=== PATIENT | female | born 1985 | race American Indian/Alaskan Native ===

== ENCOUNTER 2017-02-21 18:25 | Inpatient (IN) | payer MEDICAID, OTHER ==
[2017-02-21] MEDS ORDERED: Sodium Chloride 0.9% 10 ML Syringe FLUSH PRN (20:50)
[2017-02-21] MEDS ORDERED: Lidocaine 1% 30 ML SDV INJECT PRN (20:50)
[2017-02-21] MEDS ORDERED: Carboprost Tromethamine 250 MCG/1 ML Amp IM PRN (20:50)
[2017-02-21] MEDS ORDERED: Ondansetron 4 MG/2 ML SDV IV PRN (20:50)
[2017-02-21] MEDS ORDERED: Nalbuphine 20 MG/1 ML Amp IVPUSH PRN (20:50)
[2017-02-21] MEDS ORDERED: Lactated Ringers 500 ML IV ONE (20:50)
[2017-02-21] MEDS ORDERED: Methylergonovine 0.2 MG/1 ML Amp IM PRN (20:50)
[2017-02-21] MEDS ORDERED: fentaNYL 100 MCG/2 ML SDV IVPUSH PRN (20:50)
[2017-02-21] MEDS ORDERED: Misoprostol 400 MCG (4 X 100 MCG TAB) RECTAL PRN (20:50)
[2017-02-21] MEDS ORDERED: Oxytocin/Normal Saline 30 UNIT/500 ML BAG IV SCH (21:00)
[2017-02-21] MEDS: Misoprostol 25 MCG (1/4 of 100 MCG) Tab VAG PRN (21:20)
[2017-02-21] MEDS: Acetaminophen 325 MG Tab PO PRN (22:54)
[2017-02-21] MEDS ORDERED: Zolpidem 5 MG Tab PO PRN (22:55)
--- NOTE | 2017-02-21 23:04 | HP ---
CHIEF COMPLAINT: Leaking fluid for 23 hours. HISTORY OF PRESENT ILLNESS: A 31-year-old, 8, para 3-2-2-4, currently at 37 and 2/7 weeks of her based on 16-week 4-day ultrasound, which was different by 1 week 6 days from her last menstrual period. Reports to the hospital this evening reporting suspected spontaneous rupture of membranes yesterday approximately 9:00 p.m. and tells us that she has heavily saturated approximately 24 pads throughout the night. She had trouble getting a ride to the hospital until today. Denies any fever or chills. movement has been good. No foul-smelling drainage or discharge. No abdominal tenderness or pain. No chest pain. She has had some shortness of breath just because her abdomen is large. No headaches or blurry vision. No nausea or vomiting. Reports some trace edema, but no other potential symptoms of preeclampsia. Reports that she has had contractions off and on for the past 3 days, but nothing consistent with labor. HISTORY: Last menstrual period 05/23/2016 would make her due date February 27; however, 16-week ultrasound places her due at 03/12/2017. #7 spontaneous on 05/25/2016 approximately 6 weeks believed to be due to urinary tract infection that was not treated and resolved spontaneously. #6 delivered at term on 10/02/2011, 39 weeks 1 day gestation male spontaneous vaginal delivery, his name is Brittany. weight 3912 g. She had an intrathecal for pain management. Stage I was 24 hours. Stage II 1 hour. scores of 9 and 9. Delivered by Dr. Rojas here at [facility]. No gestational diabetes in that , and the course was uneventful. #5 was a spontaneous miscarriage on 09/10/2009 approximately 12 weeks' gestation, resolved spontaneously. #4 on 04/02/2009, at 36 weeks' gestation, vaginal spontaneous delivery, male infant. His name Tiny. weight 4564 g. Stage I was 12 hours. Stage II 8 minutes. Gestational diabetes was uncontrolled and not diagnosed until 1 week prior to delivery. She had spontaneous rupture of membranes early and then was dilated at 9 cm upon admission. Delivered here in [place] with Dr. Mojica. #3 at term delivered on 06/14/2008, 37 weeks 3 days gestation, male . Vaginally, his name is Moises, weight 3515 g. She had an intrathecal for anesthesia 13 hours of stage I, 30 minutes of stage II, delivering in [place] with Dr. Mojica. #2 delivered at term on 08/07/2006 at 38 weeks 5 days, male infant, delivered vaginally, his name is Alen, weight 4054 g under intrathecal anesthesia here in [place] with Dr. Lai. #1 delivery on 02/14/2005 at 27 weeks gestation female infant , spontaneous vaginal delivery. This was a demise. No D and C was necessary , and the patient denies getting any followup test results and had delivered at home in the bathroom. TESTING: She is blood type O positive. Antibody screen negative. Rubella immune. Syphilis negative. Hepatitis B negative. HIV negative. Gonorrhea and chlamydia negative. TSH normal at 0.90. Hepatitis C negative. Wet prep was positive for clue cells. Pap smear, history of LSIL at [place]. Glucose tolerance test of 161. The patient did drink a Mountain Dew about 15 minutes prior to drinking the glucose load and has not completed a 3- hour glucose test. Group B strep test was done at [facility] and negative. Needs Tdap and Flu vaccines. PAST MEDICAL HISTORY: 1. Abnormal Pap smear of LSIL. 2. History of alcohol abuse. Denies any use during . 3. History of chickenpox as a child. 4. History of gestational diabetes. 5. Irregular periods with menarche at age 15. 6. History of large for gestational age infant. 7. History of UTIs. 8. History of tattoos and ear piercings. No transfusions or IV drug use. PAST SURGICAL HISTORY: Negative. FAMILY HISTORY: Mother and father are both alive and well. Twins run in the father's side of the family, and he has fathered twins. She has several brothers and 1 sister all who are reportedly alive and well. A maternal cousin and niece with diabetes. All 4 grandparents are reportedly alive and well. There was also a maternal aunt with diabetes. No family history of defects, cystic fibrosis, seizures, bleeding, or clotting disorders. Anesthesia problems or Down syndrome. SOCIAL HISTORY: The patient is single. Her boyfriend, Niels, still lives in [place]. She is living in [place] with her 4 children and moved back to [place] after diagnosed. Plans on getting a job at the [employer] at the [employer] after the baby is born. This will be her first child with Niels. He is reportedly half [place] half , and he should be moving to the area when he finishes school. She denies any use of alcohol or drugs during the course of the . MEDICATION EXPOSURES: Currently taking a vitamin. Otherwise, she has had some Tylenol and nitrofurantoin and probably metronidazole for the bacterial vaginosis. ALLERGIES: Codeine reported to cause anaphylaxis. REVIEW OF SYSTEMS: Pertinent positives and negatives as listed under the history of present illness. PHYSICAL EXAMINATION: General: Pleasant, well-appearing female, who appears her stated age. Vital Signs: Temperature is 98.3, blood pressure 111/76, and pulse of 76. Head, Eyes, Ears, Nose, and Throat: All within normal limits to gross inspection. Neck: Supple without adenopathy. Heart: Regular without obvious murmur. Lungs: Clear to auscultation bilaterally. Abdomen: Gravid, soft, and nontender. heart tones tracing at 135 beats per minute at baseline. Moderate rpaj-ev-cijq variability. Accelerations are noted. [place] not really tracing contractions very well. The patient is reporting feeling contractions about every 5 to 8 minutes. Cervical exam 2 cm dilated, 50% effaced, -3 station. vertex appreciated. Extremities: No obvious edema, erythema, or tenderness noted. Skin: warm, dry. Point of care glucose test was 82. CBC is currently pending. Ultrasound confirms vertex, and amniotic fluid volume of 7.8, and largest pocket just under 4 cm. Nitrazine negative. Pooling positive. Ferning negative. AmniSure positive. Urinalysis essentially negative. ASSESSMENT: 1. A 37 and 2/7 weeks' intrauterine by 16-week ultrasound. 2. 8, para 3-2-2-4. 3. Prolonged premature rupture of membranes. 4. Blood type O positive. Rubella immune. Group B strep negative. 5. Chronic low back pain. 6. History of spontaneous x2. 7. History of demise x1. 8. Urinary tract infection first trimester. 9. History of gestational diabetes, prior with an abnormal glucose tolerance test this and did not complete a 3-hour test; however, random glucose is good at this time. 10.History of macrosomic infants. 11.Grand multiparity. 12.Low-grade squamous intraepithelial lesion, on Pap smear. PLAN: Discussed with the patient risk of prolonged rupture of membranes and induction is indicated since she is beyond 37 weeks' gestation; however, induction is also anticipated to be longer than natural onset of labor with increased risk of requiring operative delivery whether that be by vacuum assistance or in the operating room, also increased discomfort and prolonged labor process would be anticipated. There is increased risk to the baby as he is only 37 weeks' gestation, and she quite possibly has undiagnosed gestational diabetes, which could further limit lung maturity. At this time, she will be admitted to Labor and Delivery room, and Cytotec will be placed, and then pending on the results with that, we may need to be placing additional Cytotec or transition over to Pitocin. Given successful vaginal delivery history, we will be anticipating a vaginal delivery. The patient's questions have been answered, and Cytotec consent form signed. [facility] /[id number] MTDAlize
[2017-02-22] MEDS: Misoprostol 25 MCG (1/4 of 100 MCG) Tab VAG PRN (01:38)
[2017-02-22] MEDS: Lactated Ringers 1,000 ML IV SCH ×3 (05:34→17:25)
[2017-02-22] MEDS: Oxytocin/Normal Saline 30 UNIT/500 ML BAG IV SCH ×2 (05:34→20:30)
[2017-02-22] MEDS ORDERED: Diphtheria,Pertussis(Acell),Tetanus Vaccine 0.5 ML SDV IM ONE (07:06)
[2017-02-22] MEDS ORDERED: FLU VAC QS 17-18(4YR UP)CEL/PF 60 MCG/0.5 ML Syringe IM ONE (07:07)
[2017-02-22] MEDS ORDERED: Measles, Mumps & Rubella Vaccine 0.5 ML SDV SUBCUT ONE (07:07)
[2017-02-22] MEDS ORDERED: Nalbuphine 20 MG/1 ML Amp IM ONE ×2 (08:29→11:00)
--- NOTE | 2017-02-22 14:16 | PCM.HP ---
H&P History of Present Illness - General Admit Problem/Dx: Admission Diagnosis/Problem Admission Diagnosis/Problem PROM with onset of labor more than 24 hours following rupture Source of Information: Patient History Limitations: Reports: No Limitations Labor Pains Pain Score (Numeric/FACES): 4 - Related Data Allergies/Adverse Reactions: Allergies Allergy/AdvReac Type Severity Reaction Status Date / Time codeine Allergy Itching Verified 02/21/17 22:10 Home Medications: Home Meds Vit W-Ca,Fe,FA(<1 mg) [ Vitamins] 1 each PO DAILY 02/21/17 [ History] Past Medical History - Past Health History Medical/Surgical History: Denies Medical/Surgical History HEENT History: Reports: Impaired Vision Cardiovascular History: Reports: None Respiratory History: Reports: None Gastrointestinal History: Reports: GERD Other Gastrointestinal History: during Genitourinary History: Reports: Pyelonephritis, UTI, Recurrent EDUCATIONAL CONSULTANT History: Reports: , Spontaneous Other OB/BYN History: Gestational Diabetic Musculoskeletal History: Reports: Back Pain, Chronic Neurological History: Reports: None Psychiatric History: Reports: Addiction Other Endocrine/Metabolic History: Gestational Diabetic Hematologic History: Reports: None Oncologic (Cancer) History: Reports: None - Infectious Disease History Infectious Disease History: Reports: Chicken Pox - Past Surgical History HEENT Surgical History: Reports: Other (See Below) Other HEENT Surgeries/Procedures: lower wisdom teeth pulled Female Surgical History: Reports: D&C Social & Family History - Family History Family Medical History: Noncontributory - Tobacco Use Smoking Status *Q: Former Smoker Years of Tobacco use: 10 Packs/Tins Daily: 0.2 Used Tobacco, but Quit: Yes Month Tobacco Last Used: 09/2016 Second Hand Smoke Exposure: Yes - Caffeine Use Caffeine Use: Reports: Soda - Alcohol Use Days Per Week of Alcohol Use: 0 - Recreational Drug Use Recreational Drug Use: No Drug Use in Last 12 Months: Yes Recreational Drug Type: Reports: Marijuana/Hashish H&P Review of Systems - Review of Systems: Review Of Systems: See Below General: Reports: No Symptoms HEENT: Reports: No Symptoms Pulmonary: Denies: Shortness of Breath Exam - Exam Exam: See Below - Vital Signs Vital Signs: Last Vital Signs Temp 97.3 F 02/22/17 08:45 Pulse 61 02/22/17 09:45 Resp 16 02/22/17 09:45 BP 119/61 02/22/17 09:45 Pulse Ox 99 02/21/17 18:30 Weight: 195 lb - Patient Data Lab Results Last 24 hrs: Laboratory Results - last 24 hr 02/21/17 02/21/17 02/21/17 Range/Units 18:35 20:13 20:30 WBC (5.0-10.0) 10^3/uL RBC (4.2-5.4) 10^6/uL Hgb (12.0-16.0) g/dL Hct (37.0-47.0) % MCV (80-100) fL MCH (27.0-34.0) pg MCHC (33.0-35.0) g/dL Plt Count (150-450) 10^3/uL POC Glucose 82 (70-105) mg/dl Urine Color Yellow (YELLOW) Urine Appearance Slightly cloudy (CLEAR) Urine pH 8.5 (5.0-9.0) Ur Specific [place] 1.015 (1.005-1.030) Urine Protein Negative (NEGATIVE) Urine Glucose (UA) Negative (NEGATIVE) Urine Ketones Negative (NEGATIVE) Urine Occult Blood Negative (NEGATIVE) Urine Nitrite Negative (NEGATIVE) Urine Bilirubin Negative (NEGATIVE) Urine Urobilinogen 0.2 (0.2-1.0) mg/dL Ur Leukocyte Esterase Negative (NEGATIVE) Urine RBC Not seen /HPF Urine WBC 0-5 (0-5/HPF) /HPF Ur Epithelial Cells Moderate H /HPF Urine Bacteria Few (0-FEW/HPF) /HPF Urine Other See note Amniotic Ferning Test Not seen Membrane Rupture Positive (NEG) 02/21/17 Range/Units 21:15 WBC 6.3 (5.0-10.0) 10^3/uL RBC 3.30 L (4.2-5.4) 10^6/uL Hgb 9.4 L D (12.0-16.0) g/dL Hct 28.8 L (37.0-47.0) % MCV 87.3 D (80-100) fL MCH 28.5 (27.0-34.0) pg MCHC 32.6 L (33.0-35.0) g/dL Plt Count 162 D (150-450) 10^3/uL POC Glucose (70-105) mg/dl Urine Color (YELLOW) Urine Appearance (CLEAR) Urine pH (5.0-9.0) Ur Specific [place] (1.005-1.030) Urine Protein (NEGATIVE) Urine Glucose (UA) (NEGATIVE) Urine Ketones (NEGATIVE) Urine Occult Blood (NEGATIVE) Urine Nitrite (NEGATIVE) Urine Bilirubin (NEGATIVE) Urine Urobilinogen (0.2-1.0) mg/dL Ur Leukocyte Esterase (NEGATIVE) Urine RBC /HPF Urine WBC (0-5/HPF) /HPF Ur Epithelial Cells /HPF Urine Bacteria (0-FEW/HPF) /HPF Urine Other Amniotic Ferning Test Membrane Rupture (NEG) Result Diagrams: 02/21/17 21:15 *Q Meaningful Use (ADM) - VTE *Q VTE Criteria *Q: - Stroke *Q Stroke Criteria *Q: - AMI *Q AMI Criteria *Q: Orders Last 24hrs: Active Orders 24 hr Category Date Time Status Patient Status [ADT] Routine ADT 02/21/17 20:50 Active Communication Order [RC] ASDIRECTED Care 02/21/17 20:50 Active Communication Order [RC] ASDIRECTED Care 02/21/17 20:55 Active Heart Tones [RC] PER UNIT ROUTINE Care 02/21/17 20:50 Active Monitoring [RC] PER UNIT ROUTINE Care 02/21/17 20:55 Active Nitrazine Amniotic Fluid POC Testing [POC Labs] [RC] Care 02/21/17 19:40 Active ASDIRECTED Notify Provider Vital Signs OB [RC] ASDIRECTED Care 02/21/17 20:50 Active Notify Provider [RC] PRN Care 02/21/17 20:50 Active Notify Provider [RC] PRN Care 02/21/17 20:55 Active Notify Provider [RC] PRN Care 02/21/17 20:55 Active Notify Provider [RC] STAT Care 02/21/17 20:55 Active OB Check [OM.PC] Click To Edit Care 02/21/17 19:40 Ordered Pump Management, Intrathecal [RC] ASDIRECTED Care 02/21/17 20:52 Active Up ad Annia [RC] ASDIRECTED Care 02/21/17 20:50 Active Vaccines to be Administered [RC] DAILY Care 02/22/17 07:06 Active Vaginal Exam [RC] PRN Care 02/21/17 20:55 Active Vital Signs [RC] PER UNIT ROUTINE Care 02/21/17 20:50 Active Regular Diet [DIET] Diet 02/21/17 Dinner Active Acetaminophen [Tylenol] Med 02/21/17 20:50 Active 650 mg PO Q4H PRN Carboprost Tromethamine [Hemabate DS] Med 02/21/17 20:50 Active 250 mcg IM ASDIRECTED PRN Lactated Ringers [Ringers, Lactated] 1,000 ml Med 02/21/17 21:00 Active IV ASDIRECTED Lidocaine 1% [Xylocaine-MPF 1%] Med 02/21/17 20:50 Active 10 ml INJECT ASDIRECTED PRN Methylergonovine [Methergine] Med 02/21/17 20:50 Active 0.2 mg IM ASDIRECTED PRN Misoprostol [Cytotec] Med 02/21/17 20:54 Active 25 mcg VAG Q4H PRN Misoprostol [Cytotec] Med 02/21/17 20:50 Active 800 mcg RECTAL ASDIRECTED PRN Nalbuphine [Nubain] Med 02/21/17 20:50 Active 20 mg IVPUSH ONETIME PRN Ondansetron [Zofran] Med 02/21/17 20:50 Active 4 mg IV Q4H PRN Oxytocin/Normal Saline [Pitocin in NS 30 UNIT/500 ML] Med 02/21/17 21:00 Active 30 unit in 500 ml IV TITRATE Oxytocin/Normal Saline [Pitocin in NS 30 UNIT/500 ML] Med 02/22/17 05:30 Active 30 unit in 500 ml IV TITRATE Sodium Chloride 0.9% [Saline Flush] Med 02/21/17 20:50 Active 10 ml FLUSH ASDIRECTED PRN Zolpidem [Ambien] Med 02/21/17 22:55 Active 5 mg PO ONETIME PRN fentaNYL [Sublimaze] Med 02/21/17 20:50 Active 50 mcg IVPUSH Q1H PRN Heart Monitor External [WOMSER] Routine Oth 02/21/17 19:40 Ordered Saline Lock Insert [OM.PC] Routine Oth 02/21/17 20:50 Ordered Resuscitation Status Routine Resus Stat 02/21/17 20:50 Ordered Medication Orders Acetaminophen (Tylenol) 650 mg PO Q4H PRN PRN Reason: Pain (Mild 1-3) and fever Last Admin: 02/21/17 22:54 Dose: 650 mg Carboprost Tromethamine (Hemabate Ds) 250 mcg IM ASDIRECTED PRN PRN Reason: HEMORRHAGE Fentanyl (Sublimaze) 50 mcg IVPUSH Q1H PRN PRN Reason: Pain (moderate 4-6) Last Admin: 02/22/17 13:25 Dose: 50 mcg Lactated Ringer's (Ringers, Lactated) 1,000 mls @ 125 mls/hr IV ASDIRECTED ANA Last Admin: 02/22/17 13:40 Dose: 125 mls/hr Infusion: 02/22/17 13:25 Dose: 125 mls/hr Admin: 02/22/17 05:34 Dose: 125 mls/hr Oxytocin/Sodium Chloride (Pitocin In Ns 30 Unit/500 Ml) 30 unit in 500 mls @ 2 mls/hr IV TITRATE ANA; 2 MUNITS/MIN PRN Reason: Protocol Oxytocin/Sodium Chloride (Pitocin In Ns 30 Unit/500 Ml) 30 unit in 500 mls @ 2 mls/hr IV TITRATE ANA; 2 MUNITS/MIN PRN Reason: Protocol Last Titration: 02/22/17 13:50 Dose: 16 munits/min, 16 mls/hr Titration: 02/22/17 12:15 Dose: 14 munits/min, 14 mls/hr Titration: 02/22/17 11:30 Dose: 12 munits/min, 12 mls/hr Titration: 02/22/17 10:45 Dose: 10 munits/min, 10 mls/hr Titration: 02/22/17 07:03 Dose: 8 mls/hr Titration: 02/22/17 06:30 Dose: 6 mls/hr Titration: 02/22/17 06:00 Dose: 4 mls/hr Admin: 02/22/17 05:34 Dose: 2 munits/min, 2 mls/hr Lidocaine HCl (Xylocaine-Mpf 1%) 10 ml INJECT ASDIRECTED PRN PRN Reason: Perineal Repair Methylergonovine Maleate (Methergine) 0.2 mg IM ASDIRECTED PRN PRN Reason: Hemorrhage Misoprostol (Cytotec) 800 mcg RECTAL ASDIRECTED PRN PRN Reason: Hemorrhage Misoprostol (Cytotec) 25 mcg VAG Q4H PRN PRN Reason: cervical ripening Last Admin: 02/22/17 01:38 Dose: 25 mcg Admin: 02/21/17 21:20 Dose: 25 mcg Nalbuphine HCl (Nubain) 20 mg IVPUSH ONETIME PRN PRN Reason: Abdominal Pain Ondansetron HCl (Zofran) 4 mg IV Q4H PRN PRN Reason: Nausea/Vomiting Sodium Chloride (Saline Flush) 10 ml FLUSH ASDIRECTED PRN PRN Reason: Keep Vein Open Zolpidem Tartrate (Ambien) 5 mg PO ONETIME PRN PRN Reason: Insomnia Last Admin: 02/21/17 23:19 Dose: 5 mg
[2017-02-22] MEDS ORDERED: fentaNYL 100 MCG/2 ML SDV ONE (15:12)
[2017-02-22] MEDS ORDERED: EPINEPHrine 1 MG/ML SDV ONE (15:12)
--- NOTE | 2017-02-22 16:14 | PCM.PRNOTE ---
- Free Text/Narrative Note: Requested to provide analgesia to full term patient in severe pain. Upon entering the room, patient is lying on left side complaining of severe abdominal pain and discomfort. Procedure was discussed with patient including adverse outcomes and expectations. Pt has a history of chronic back pain so discussed how the intrathecal may exacerbate back pain for up to 6 weeks. Pt understands risks and Pt consented to analgesia, SAB/IT. Pt placed into a sitting position. Landmarks for SAB/IT were identified and marked. Back was prepped with betadine x3. A sterile, transparent, fenestrated drape was applied. Excess betadine was removed. Using 3 mL of a 1% lidocaine solution, a skin wheel was placed at the L3/L4 interspace. First attempt was unsuccessful, could not find space secondary to poor positioning. Second attempt at L4/L5 , a 24 ga (4 inch) Pencan spinal needle was inserted until positive for CSF. Negative for heme or paresthesias. Injected fentanyl 20 mcg, sufentanil 10 mcg , and 12 mg of a 0.75% bupivacaine solution with an epi wash. Pt was placed left lateral position for approximately 20 minutes. There were zero complications or adverse outcomes. Will continue to monitor.
[2017-02-22] MEDS ORDERED: Benzocaine/Menthol 20%-0.5% Spray 56 GM Canister TOP PRN (19:16)
[2017-02-22] MEDS ORDERED: Simethicone 80 MG Tab.Chew PO PRN (19:16)
[2017-02-22] MEDS: Ibuprofen 800 MG Tab PO PRN (19:30)
--- NOTE | 2017-02-22 20:32 | DEL ---
DATE: 02/22/2017 PREOPROCEDURE DIAGNOSES: 1. A 37 and 3/7 weeks' gestation based on 16-week ultrasound. 2. 8, para 3-2-2-4. 3. Prolonged premature rupture of membranes. 4. Grand multiparity. 5. History of gestational diabetes with a 1-hour test of 161 and a 3-hour was not completed. 6. History of macrosomic . 7. History of first trimester urinary tract infection. 8. History of spontaneous x2 and demise x1. 9. Chronic low back pain. 10.Blood type O positive, rubella immune, and group B strep negative. 11.Anemia of . POSTPROCEDURE DIAGNOSES: 1. A 37 and 3/7 weeks' gestation based on 16-week ultrasound. 2. 8, now para 4-2-2-5. 3. Prolonged premature rupture of membranes. 4. Grand multiparity. 5. History of gestational diabetes with a 1-hour test of 161 and a 3-hour was not completed. 6. History of macrosomic infant. 7. History of first trimester urinary tract infection. 8. History of spontaneous x2 and demise x1. 9. Chronic low back pain. 10.Blood type O positive, rubella immune, and group B strep negative. 11.Status post first-degree laceration repair. 12.Anemia of . BRIEF HISTORY: A 31-year-old female with the above-listed diagnoses, presented to the hospital at approximately 23 hours status post spontaneous rupture of clear fluid at home. At no point during labor did she have any signs or symptoms of chorioamnionitis, labor was induced with 2 doses of Cytotec followed by Pitocin, and once she reached 5 cm of dilatation, she had an intrathecal for pain management. See history and physical and progress notes for further details. PROCEDURE IN DETAIL: With the patient in dorsal lithotomy position, she delivered a viable male over intact perineum. was dried and stimulated, and mouth and nose were bulb suctioned, and baby placed up on mother's abdomen. After at least 45-second delay, the umbilical cord was doubly clamped and then cut and cord blood sample obtained. Placenta was then delivered via gentle cord traction and concomitant uterine massage, inspected and intact. Labia and vagina were inspected. There was a first-degree laceration with some brisk bleeding that was repaired with 3-0 Vicryl in standard fashion and there continued to be additional bleeding, so an additional [id number]-rp-smgln stitch was also placed. The uterus during this time was having episodes of brisk bleeding, which was controlled with IV Pitocin and a dose of IM Methergine and fundal massage. After the repair was done, there still was some excessive trickling from the uterus, and the vagina was reinspected, and I found some clot present, and once that was removed, the bleeding improved significantly. The patient tolerated procedure well. ESTIMATED BLOOD LOSS: 350 mL. COMPLICATIONS: None. FINDINGS: Viable male infant. scores of 9 and 8. weight 3340 g, 7 pounds 6 ounces. DISPOSITION: Mother and baby to stay in the room at this time. [facility] /[id number]
[2017-02-22] MEDS: Zolpidem 5 MG Tab PO PRN (21:08)
[2017-02-23] MEDS: Acetaminophen 325 MG Tab PO PRN ×2 (05:25→21:38)
[2017-02-23] MEDS ORDERED: LORazepam 1 MG Tab ONE (07:11)
[2017-02-23] MEDS ORDERED: LORazepam 1 MG Tab PO PRN (07:32)
--- NOTE | 2017-02-23 08:59 | PN ---
DATE: 02/23/2017 SUBJECTIVE: day #1. A 31-year-old, 8, now para 4-2-2-5, status post uncomplicated vaginal delivery. She did have premature prolonged rupture of membranes prior to delivery and has had zero symptoms of any infections or chorioamnionitis, and overall, doing quite well. She has been ambulating. She is set with a clear liquid through the night but has a regular tray this morning, which I anticipate she will tolerate well. She is voiding without difficulties. She has not had a bowel movement, a small amount of bleeding. No chest pain or shortness of breath this morning around 04:00 a.m. Woke up with panic attack symptoms, and by 07:00 a.m., the nurses needed to call for a dose of p.r.n. Ativan which has helped the patient significantly at this time. OBJECTIVE: Vital Signs: When she was having her panic attacks, she was tachycardic, tachypneic, and possibly sweating as well. Now temperature is 98.3, pulse 70, respiratory rate of 16, and blood pressure 104/50. Heart: Regular without obvious murmur. Lungs: Clear to auscultation bilaterally. Abdomen: Soft and nontender. Fundus is firm and below the umbilicus. Extremities: No edema, erythema, or tenderness noted. LABORATORY DATA: White blood cell count has gone up to 15.7, hemoglobin down to 8.4, and platelets up to 190. ASSESSMENT: 1. Post vaginal delivery, day #1. 2. Status post first-degree laceration repair. 3. 8, para 4-2-2-5. 4. Chronic low back pain. 5. Anxiety with panic. Other diagnoses per her admission history and physical. PLAN: Continue normal cares. Anticipate discharge home tomorrow. We will get her restarted on her Celexa and trazodone that she has been on in the past for her anxiety and anticipate sending her home with those prescriptions as well. We can adjust the medicine as an outpatient. Discussed with her that Ativan is not appropriate for chronic use of control of anxiety. The patient's questions were answered, and she is happy with the plan. [facility] /[id number] [place]
[2017-02-23] MEDS: Prenatal Multivitamin with Calcium/Folic Acid/Iron Tab PO SCH (11:22)
[2017-02-23] MEDS: Docusate Sodium 100 MG Cap PO PRN ×2 (11:22→20:48)
[2017-02-23] MEDS: Citalopram 20 MG Tab PO SCH (11:22)
[2017-02-23] MEDS: Ibuprofen 800 MG Tab PO PRN (11:22)
[2017-02-23] MEDS: Ferrous Sulfate 325 MG Tab PO SCH (11:22)
[2017-02-23] MEDS ORDERED: hydrOXYzine HCl 25 MG Tab PO PRN (12:06)
[2017-02-23] MEDS: Diazepam 5 MG Tab PO PRN ×2 (12:13→21:38)
[2017-02-23] MEDS ORDERED: EPINEPHrine 1 MG/ML SDV ONE (13:46)
[2017-02-23] MEDS ORDERED: fentaNYL 100 MCG/2 ML SDV ITHECAL ONE (13:46)
[2017-02-23] MEDS: traZODone 50 MG Tab PO SCH (20:47)
[2017-02-24] MEDS: Zolpidem 5 MG Tab PO PRN (00:26)
[2017-02-24] MEDS: Prenatal Multivitamin with Calcium/Folic Acid/Iron Tab PO SCH (08:51)
[2017-02-24] MEDS: traZODone 50 MG Tab PO SCH (08:51)
[2017-02-24] MEDS: Citalopram 20 MG Tab PO SCH (08:52)
[2017-02-24] MEDS: Docusate Sodium 100 MG Cap PO PRN ×2 (08:52→20:53)
[2017-02-24] MEDS: Ferrous Sulfate 325 MG Tab PO SCH (08:52)
[2017-02-24] MEDS: Diazepam 5 MG Tab PO PRN (09:59)
--- NOTE | 2017-02-24 15:55 | PN ---
DATE: 02/24/2017 SUBJECTIVE: The patient requested that I come by and talk to her this afternoon over the lunch hour because of concerns of her baby having jitteriness and increased fussiness and inconsolability. Edwige and I had a long conversation ultimately resulting in the fact that her panic and anxiety has been worse because she is concerned about her son's withdrawal symptoms and ultimately she did admit to using approximately 300 mg of tramadol daily since sometime in December. Ultimately, this all started with an infected tooth and she had a prescription of tramadol at that time that she did not use; however, with increased dental pain and dental complications, she started using the tramadol that she had. She had seen the dentist about doing a root canal, but he refused to do anything while she was . When she ran out of her prescribed supply of tramadol, she did begin to buy it off the street and had escalated her use in order to control the pain. She admits to having some withdrawal symptoms herself, which also lead to increased panic and anxiety attacks. We discussed that if she had come to her care appointments since September, I could have been helping her by prescribing more appropriate pain medication. We would have talked more about help vit transportation as we had done that in the past. Unfortunately, she never contacted those other numbers to obtain a ride and at this point, I do not feel that she would need a drug and alcohol assessment or treatment program, but that once her dental issues are addressed, she would be able to stop using the tramadol and get her anxiety under better control. OBJECTIVE: No formal physical exam at this time. I did spend about 20 minutes talking with her about the events as outlined and listed above. She was tearful at one point when demonstrating concern for her son and the symptoms that he is experiencing. She seems honest at this time and it did take a toll on her to admit to me this drug use. ASSESSMENT: 1. Tramadol dependence. 2. Dental disease, causing pain. 3. Difficulties with transportation. PLAN: At this time, we will be consulting Agency [employer] to ensure that she is getting the help that she needs with adequate transportation to get dental and medical appointments for both her and her . I do not feel that she needs a 960 filed; however, she does need Agency Owner involvement to ensure that she has the tools necessary to help her with these circumstances. I will be giving her some tramadol while here in the hospital to help with the dental pain, but patient also needs to get in to see the dentist as soon as possible. Now, she is , there is no contraindication to having the necessary root canal and possible dental extractions performed that are necessary. She has verbalized understanding. Appropriate orders have been placed in the chart. [facility] /[id number] REYNOLD
--- NOTE | 2017-02-24 18:22 | PN ---
DATE: 02/24/2017 SUBJECTIVE: The patient is post day 2 status post vaginal delivery. She was ambulating, voiding, tolerating regular diet all without difficulty. She slept well overnight. She feels that her anxiety and pain are well controlled on current medications. She is passing gas and has had a bowel movement. She denies fevers, chills, chest pain, shortness of breath, lower extremity edema, or calf tenderness. OBJECTIVE: Vital Signs: Stable overnight. Within normal limits. She was afebrile. General: Alert, well oriented, cooperative, and not in distress. Lungs: Clear to auscultation bilaterally. Heart: Regular rate and rhythm. No murmurs. Abdomen: Soft and nontender. Bowel sounds present. Fundus firm and below the umbilicus. Extremities: Lower extremities nontender and no edema. ASSESSMENT: 1. day 2. 2. Prolonged rupture of membranes. 3. Anemia of . 4. Chronic low back pain. The patient is stable and comfortable, doing well in no acute distress. PLAN: Probable discharge tomorrow morning. [facility] /[id number]
[2017-02-24] MEDS: Acetaminophen 325 MG Tab PO PRN (20:53)
[2017-02-25 08:33] VITALS: BP 107/65
[2017-02-25] MEDS: Docusate Sodium 100 MG Cap PO PRN (08:37)
[2017-02-25] MEDS: Ferrous Sulfate 325 MG Tab PO SCH (08:37)
[2017-02-25] MEDS: Prenatal Multivitamin with Calcium/Folic Acid/Iron Tab PO SCH (08:37)
[2017-02-25] MEDS: Citalopram 20 MG Tab PO SCH (08:37)
[2017-02-25] MEDS: traMADol 50 MG Tab PO PRN ×3 (08:42→23:53)
[2017-02-25] MEDS ORDERED: Diphtheria,Pertussis(Acell),Tetanus Vaccine 0.5 ML SDV IM ONE (09:30)
[2017-02-25] MEDS ORDERED: FLU VAC QS 17-18(4YR UP)CEL/PF 60 MCG/0.5 ML Syringe IM ONE (09:30)
[2017-02-25] MEDS: traZODone 50 MG Tab PO SCH (11:05)
--- NOTE | 2017-02-25 16:00 | DISCH ---
ADMISSION DIAGNOSES: 1. A 37 and 2/7 weeks gestation by 16-week ultrasound. 2. 8, para 3-2-2-4. 3. Grand multiparity. 4. Blood type O positive. Rubella immune. Group B strep negative. 5. History of low-grade squamous intraepithelial lesion on Pap smear. 6. Chronic low back pain. 7. History of x2. 8. History of demise x1. 9. History of urinary tract infection treated in the first trimester. 10.History of gestational diabetes, prior . This , 1-hour glucose tolerance test of 161, and did not complete her 3-hour test. 11.History of macrosomia. 12.Prolonged premature rupture of membranes. 13.Anemia of . DISCHARGE DIAGNOSES: 1. A 37 and 2/7 weeks gestation by 16-week ultrasound. 2. 8, now para 4-2-2-5. 3. Grand multiparity. 4. Blood type O positive. Rubella immune. Group B strep negative. 5. History of low-grade squamous intraepithelial lesion on Pap smear. 6. Chronic low back pain. 7. History of x2. 8. History of demise x1. 9. History of urinary tract infection treated in the first trimester. 10.History of gestational diabetes, prior . This , 1-hour glucose tolerance test of 161, and did not complete her 3-hour test. 11.History of macrosomia. 12.Prolonged premature rupture of membranes. 13.Anemia of . 14.Admission of tramadol dependence. 15.Influenza and Tdap vaccines administered. 16.Dental pain. 17.Anxiety with panic attacks. BRIEF HISTORY: A 31-year-old female, presented to the hospital at 2300 hours for spontaneous rupture of clear fluid at home and found not to be in labor. See admission history and physical for full details. HOSPITAL COURSE: The patient's labor was induced with 2 doses of Cytotec followed by Pitocin. Ultimately, she went on to have an intrathecal for pain management and later had a spontaneous vaginal delivery without complications, but did need a first-degree laceration repair. Since delivery, she has been ambulating, tolerating a regular diet, voiding without complication. She now is having bowel movements as well. She had some panic and anxiety attacks for which we needed to medicate with benzodiazepines. Ultimately, she admitted that much of this was because of tramadol withdrawal symptoms because she had been taking 300 mg daily for about the last month and a half and primarily had been buying this on the street in order to manage some dental pain because she could not find a dentist to do the dental work while . [employer] was consulted to help her with arranging transportation to get to medical and dental appointment as appropriate and also secured disposition for baby. I feel baby will be able to go home with mom without complications. However, [employer] should be involved to assist with access to care for herself and the baby. DISCHARGE CONDITION: Good. PHYSICAL EXAMINATION: Vital Signs: Temperature is 99.1, pulse 68, blood pressure 107/65, respiratory rate of 18, O2 saturations 87% on room air. Heart: Regular without obvious murmur. Lungs: Clear to auscultation bilaterally. Abdomen: Soft and nontender. Fundus is firm and below the umbilicus. Extremities: No edema, erythema, or tenderness noted. LABORATORY DATA: Shows admission hemoglobin of 9.4, discharge of 8.4. Initial white blood cell count 6.3, discharge of 15.7. Glucose checked randomly was 82. Urinalysis was negative for infection. DISPOSITION: Home with family. MEDICATIONS: 1. Ibuprofen 600 mg every 6 hours as needed for pain. 2. Tylenol 650 mg every 6 hours as needed for pain. 3. Iron 325 mg twice daily. 4. Colace 100 mg twice daily as needed for constipation. 5. Celexa 20 mg daily. 6. Trazodone 50 mg at bedtime, nightly. 7. Tramadol 100 mg three times daily as needed for pain, dispensed #15 with no refills. INSTRUCTIONS: She is to call the dental office at [place] and get herself in as soon as possible to get her dental issues resolved or for them to take over management of any pain medications and antibiotics that she may need. She needs to make an appointment to see me in the office for a 6-week examination. Should not lift anything over 25 pounds and needs to be on pelvic rest for those 6 weeks. Also, discussed with her that if she is having issues with anxiety and depression, she should be seeing a counselor and [employer] can help set that up. I do believe that this patient's misuse of the tramadol is related to her dental pain and once that is addressed, she will not have ongoing substance abuse issues, however, she should be monitored for this closely and drug and alcohol evaluation arranged if other symptoms or signs were to develop. Otherwise, routine post vaginal delivery instructions were provided and her questions were answered. [facility] /[id number] MTDD
[2017-02-25] MEDS: Acetaminophen 325 MG Tab PO PRN (20:07)
[2017-02-25] MEDS: Ibuprofen 800 MG Tab PO PRN (23:41)
== END 2017-02-25 23:53 | disposition home or self-care (01) | DRG 775 ==
LOC: DL.OBCHECK 18:25 → DL.OB 18:43 → OBSVTOIN 02-22 18:43
PROVIDERS: ADMIT Family Medicine; ATTEND Family Medicine
PROC: 10E0XZZ Delivery of Products of Conception, External Approach (ICD-10-PCS; principal; 2017-02-22)
PROC: 0HQ9XZZ Repair Perineum Skin, External Approach (ICD-10-PCS; 2017-02-22)
PROC: 00HU33Z Insertion of Infusion Device into Spinal Canal, Percutaneous Approach (ICD-10-PCS; 2017-02-22)
PROC: 3E0R3BZ Introduction of Anesthetic Agent into Spinal Canal, Percutaneous Approach (ICD-10-PCS; 2017-02-22)
PROC: 3E0234Z Introduction of Serum, Toxoid and Vaccine into Muscle, Percutaneous Approach (ICD-10-PCS; 2017-02-25)
DX: O42.12 Full-term premature rupture of membranes, onset of labor more than 24 hours following rupture (principal); O99.324 Drug use complicating childbirth; F11.20 Opioid dependence, uncomplicated; Z37.0 Single live birth; Z3A.37 37 weeks gestation of pregnancy; O99.02 Anemia complicating childbirth; O75.89 Other specified complications of labor and delivery; M54.5 Low back pain; G89.29 Other chronic pain; K08.89 Other specified disorders of teeth and supporting structures; O70.0 First degree perineal laceration during delivery; Z23 Encounter for immunization; O99.345 Other mental disorders complicating the puerperium; F41.9 Anxiety disorder, unspecified
CPT/HCPCS: 01967; 36415; 59300; 59409; 76815; 81001; 82274; 82962; 83986; 84112; 85027; 90674; 90715; A9270-GY; J0171; J2210; J2300; J2405; J2590; J3010; J7120

== ENCOUNTER 2017-05-27 14:08 | Emergency (ER) | payer MEDICAID, OTHER ==
[2017-05-27 14:17] VITALS: BP 127/73
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
[2017-05-27] MEDS ORDERED: Bacitracin Oint 1 GM U/D Packet TOP ONE (14:24)
[2017-05-27] MEDS ORDERED: Lidocaine 5% Oint 35.44 GM Tube TOP ONE (14:25)
[2017-05-27] MEDS ORDERED: Lidocaine 2% Viscous Solution 15 ML Cup PO ONE (14:25)
[2017-05-27] MEDS ORDERED: Clindamycin HCl 150 MG Cap PO ONE (14:26)
[2017-05-27] MEDS ORDERED: Ibuprofen 800 MG Tab PO ONE (14:26)
== END 2017-05-27 15:31 | disposition home or self-care (01) ==
LOC: DL.ED 14:08
DX: S00.531A Contusion of lip, initial encounter (principal); S00.81XA Abrasion of other part of head, initial encounter; Z88.5 Allergy status to narcotic agent; Z87.891 Personal history of nicotine dependence; Y09 Assault by unspecified means
CPT/HCPCS: 99284; A9270

== ENCOUNTER 2017-05-29 14:23 | Emergency (ER) | payer MEDICAID, OTHER | END 2017-05-29 14:25 | disposition left against medical advice (07) | LOC: DL.ED 14:23 | DX: Z53.21 Procedure and treatment not carried out due to patient leaving prior to being seen by health care provider (principal) ==

== ENCOUNTER 2021-04-25 21:08 | Emergency (ER) | payer MEDICAID ==
[2021-04-25] MEDS ORDERED: Ciprofloxacin 500 MG Tab PO ONE ×2 (21:09→21:56)
[2021-04-25 21:35] LABS: AMPHETAMINES,URINE POSITIVE (NEGATIVE); BARBITURATES,URINE NEGATIVE (NEGATIVE); BENZODIAZEPINE,URINE NEGATIVE (NEGATIVE); MDMA (ECSTASY), URINE NEGATIVE (NEGATIVE); METHADONE,URINE NEGATIVE (NEGATIVE); METHAMPHETAMINES,URINE POSITIVE (NEGATIVE); OPIATES,URINE NEGATIVE (NEGATIVE); OXYCODONE,URINE NEGATIVE (NEGATIVE); PHENCYCLIDINE,URINE NEGATIVE (NEGATIVE); TCA,URINE NEGATIVE (NEGATIVE)
[2021-04-25 22:54] VITALS: BP 142/84; PULSE 80
[2021-04-25] MEDS ORDERED: Ciprofloxacin 500 MG Tab ONE (23:21)
== END 2021-04-26 00:12 | disposition home or self-care (01) ==
LOC: DL.ED 21:08
DX: N30.00 Acute cystitis without hematuria (principal); F15.10 Other stimulant abuse, uncomplicated; Z88.5 Allergy status to narcotic agent
CPT/HCPCS: 80305; 81001; 87086; 87088; 87186; 99283; A9270

== ENCOUNTER 2023-06-01 02:33 | Emergency (ER) | payer MEDICAID ==
[2023-06-01 02:55] VITALS: BP 109/66; PULSE 67
[2023-06-01] MEDS: Ketorolac 30 MG/ML SDV IVPUSH ONE (03:34)
[2023-06-01] MEDS: Ketorolac 30 MG/ML SDV IM ONE (03:35)
== END 2023-06-01 04:48 | disposition home or self-care (01) ==
LOC: DL.ED 02:33
DX: S00.83XA Contusion of other part of head, initial encounter (principal); S80.811A Abrasion, right lower leg, initial encounter; M54.2 Cervicalgia; Z88.5 Allergy status to narcotic agent; Y04.8XXA Assault by other bodily force, initial encounter
CPT/HCPCS: 36415; 72125; 84703; 96374; 99283; 99284; J1885

== ENCOUNTER 2023-09-27 16:38 | Emergency (ER) | payer MEDICAID ==
[2023-09-27] MEDS: Albuterol/Ipratropium 3.0-0.5 MG/3 ML Neb Soln NEB ONE (17:04)
[2023-09-27] MEDS: Sodium Chloride 0.9% 1,000 ML IV ONE (17:06)
[2023-09-27] MEDS: methylPREDNISolone Sodium Succinate 125 MG/2 ML SDV IVPUSH ONE (17:07)
[2023-09-27 17:15] LABS: BASOPHILS PERCENT AUTO 0.5 % (0.0-1.0); EOSINOPHILS PERCENT AUTO 1.8 % (1.0-3.0); HEMATOCRIT 36.8 % (37.0-47.0); HEMOGLOBIN 12.3 g/dL (12.0-16.0); LYMPHOCYTES PERCENT AUTO 22.5 % (20.5-50.1); MEAN CORPUSCULAR HEMOGLOBIN 30.5 pg (27.0-34.0); MEAN CORPUSCULAR HGB CONC 33.4 g/dL (33.0-35.0); MEAN CORPUSCULAR VOLUME 91.3 fL (80-100); MONOCYTES PERCENT AUTO 5.9 % (2-8); NEUTROPHILS PERCENT AUTO 69.3 % (42.2-75.2); PLATELET COUNT,PLT 333 10^3/uL (150-450); RED BLOOD CELL COUNT 4.03 10^6/uL (4.2-5.4); WHITE BLOOD CELL COUNT,WBC 6.1 10^3/uL (5.0-10.0)
[2023-09-27 17:19] VITALS: BP 104/67; PULSE 52
[2023-09-27 17:38] LABS: A/G RATIO 0.8; ALANINE AMINOTRANSFERASE,ALT 36 U/L (14-59); ALBUMIN 3.5 g/dL (3.4-5.0); ALKALINE PHOSPHATASE 85 U/L (46-116); ANION GAP 14.7 mEq/L (7-13); ASPARTATE AMNIOTRANSFERASE,AST 27 U/L (15-37); BILIRUBIN TOTAL 0.4 mg/dL (0.2-1.0); BLOOD UREA NITROGEN,BUN 5 mg/dL (7-18); BUN/CREATININE RATIO 6.5 (No establ ref range); CALCIUM 9.1 mg/dL (8.5-10.1); CARBON DIOXIDE,CO2 25 mmol/L (21-32); CHLORIDE,CL 105 mmol/L (98-107); CREATININE 0.77 mg/dL (0.55-1.02); GLUCOSE RANDOM 105 mg/dL (70-99); POTASSIUM,K 3.7 mmol/L (3.5-5.1); PROTEIN TOTAL,TP 8.1 g/dL (6.4-8.2); SODIUM,NA 141 mmol/L (136-145)
[2023-09-27 17:42] LABS: LACTIC ACID 1.4 mmol/L (0.4-2.0)
[2023-09-27] MEDS: methylPREDNISolone Sodium Succinate 125 MG/2 ML SDV ONE (17:46)
[2023-09-27 17:53] LABS: ESTIMATED GFR 102 mL/min (>=60)
== END 2023-09-27 18:36 | disposition home or self-care (01) ==
LOC: DL.ED 16:38
DX: J20.9 Acute bronchitis, unspecified (principal); J44.0 Chronic obstructive pulmonary disease with (acute) lower respiratory infection; Z88.8 Allergy status to other drugs, medicaments and biological substances
CPT/HCPCS: 36415; 71046; 80053; 83605; 84145; 85025; 87804; 96361; 96374; 99285-25; J2919; J7030; J7620-GY; U0002